=== PATIENT | female | born 1990 | race Caucasian/White ===

== ENCOUNTER 2019-11-16 15:02 | Emergency (ER) | payer OTHER ==
[~2019-11-16] VITALS: Ht 170.2 cm; Wt 70.3 kg
[2019-11-16 15:08] VITALS: Ht 170.2 cm; Wt 70.3 kg
[2019-11-16 17:51] VITALS: BP 143/90
== END 2019-11-16 17:51 | disposition home or self-care (01) ==
LOC: ED 15:02
DX: M25.511 Pain in right shoulder (principal); M25.561 Pain in right knee; M54.2 Cervicalgia; R07.89 Other chest pain; V49.59XA Passenger injured in collision with other motor vehicles in traffic accident, initial encounter; Y93.89 Activity, other specified; Y92.488 Other paved roadways as the place of occurrence of the external cause; Y99.8 Other external cause status
CPT/HCPCS: J1885